=== PATIENT | male | born 1935 | race African-American/Black ===

== ENCOUNTER → 2017-01-18 | Outpatient (CLI) | payer MEDICARE, BC ==
[2017-01-18 09:47] LABS: ALANINE AMINOTRANSFERASE 37 U/L (21-72); ALBUMIN 3.8 g/dL (3.5-5.0); ALKALINE PHOSPHATASE 76 U/L (38-126); ANION GAP 12 (5-19); ASPARTATE AMINO TRANSFERASE 34 U/L (17-59); BILIRUBIN,DIRECT 0.1 mg/dL (0.0-0.4); BILIRUBIN,TOTAL 0.6 mg/dL (0.2-1.3); BLOOD UREA NITROGEN 12 mg/dL (7-20); CALCIUM 8.9 mg/dL (8.4-10.2); CARBON DIOXIDE 29 mmol/L (22-30); CHLORIDE 103 mmol/L (98-107); CHOLESTEROL 107.41 mg/dL (0-200); CREATININE RESULT 0.89 mg/dL (0.52-1.25); Direct HDL 29 mg/dL (>40); GLUCOSE 92 mg/dL (75-110); POTASSIUM 4.3 mmol/L (3.6-5.0); SODIUM 144.4 mmol/L (137-145); TRIGLYCERIDES 76 mg/dL (<150)
[2017-01-18 09:58] LABS: DIRECT LDL 51 mg/dL (<100)
== END ==
LOC: OD 08:12
PROVIDERS: ATTEND Internal Medicine
DX: I10 Essential (primary) hypertension (principal); I25.10 Atherosclerotic heart disease of native coronary artery without angina pectoris; I08.3 Combined rheumatic disorders of mitral, aortic and tricuspid valves; E78.5 Hyperlipidemia, unspecified; R94.31 Abnormal electrocardiogram [ECG] [EKG]; Z79.899 Other long term (current) drug therapy
CPT/HCPCS: 36415; 80053; 80061

== ENCOUNTER → 2017-02-24 | Outpatient (CLI) | payer MEDICARE, BC ==
--- NOTE | 2017-02-24 08:26 | RADIOLOGY REPORT (SQ) ---
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 TECHNIQUE: CT scan of the abdomen and pelvis performed without intravenous or oral contrast. Images reviewed with lung, soft tissue, and bone windows. Reconstructed coronal and sagittal MPR images revi ewed. All images stored on PACS. All CT scanners at this facility use dose modulation, iterative reconstruction, and/or weight based d osing when appropriate to reduce radiation dose to as low as reasonably achievable (ALARA). [facility]: Dose Right [facility]: CareDose [facility]: Dose Right [facility]: Teradose 4D [facility]: [email or web address] RADIATION DOSE: 6.46mGy. LIMITATIONS: None. FINDINGS: LOWER CHEST: Small right pleural effusion is identified. NON-CONTRASTED LIVER, SPLEEN, ADRENALS: Evaluation limited by lack of IV contrast. No identified sign ificant masses. PANCREAS: No masses. No peripancreatic inflammatory changes. GALLBLADDER: There is some increased density in the dependent portion of the gallbladder lumen which could represent tiny gallstones or biliary sludge. No inflammatory changes to suggest cholecystitis. RIGHT KIDNEY AND URETER: No suspicious masses. Assessment limited by lack of IV contrast. No signif icant calcifications. No hydronephrosis or hydroureter. LEFT KIDNEY AND URETER: No suspicious masses. Assessment limited by lack of IV contrast. No signifi cant calcifications. No hydronephrosis or hydroureter. AORTA AND RETROPERITONEUM: No aneurysm. No retroperitoneal masses or adenopathy. BOWEL AND PERITONEAL CAVITY: No obvious masses or inflammatory changes. No free fluid. There are sca ttered diverticula throughout the colon without CT evidence for diverticulitis. The diverticula are most numerous in the sigmoid colon. APPENDIX: Normal. PELVIS, BLADDER, AND ABDOMINAL WALL:No abnormal masses. No free fluid. Bladder normal. BONES: No significant findings. OTHER: No other significant finding. IMPRESSION: Multiple diverticula throughout the colon as noted above without definite CT evidence fo r diverticulitis. There is some increased density in the dependent portion of the gallbladder lumen which could represent tiny gallstones or biliary sludge. Small right pleural effusion is identified. Other findings as noted above TECHNICAL DOCUMENTATION: JOB ID: [id number] Quality ID # [id number]: Final reports with documentation of one or more dose reduction techniques (e.g., Au tomated exposure control, adjustment of the mA and/or kV according to patient size, use of iterative reconstruction technique) 2010 [employer]- All Rights Reserved
== END ==
LOC: RAD 07:23
PROVIDERS: ATTEND Specialist
DX: K57.30 Diverticulosis of large intestine without perforation or abscess without bleeding (principal)
CPT/HCPCS: 74176

== ENCOUNTER → 2017-03-16 | Outpatient (CLI) | payer MEDICARE, BC ==
--- NOTE | 2017-03-16 18:01 | XCELERA REPORT ---
[address] [address] Transthoracic Echocardiogram Report Name: OSITO PINA Age: 81 yrs Gender: Male : 1935 Patient Status: Outpatient Patient Location: Study Date: 03/16/2017 02:47 PM Height: 69 in Weight: 175 lb BSA: 2.0 m2 Procedure: A two-dimensional transthoracic echocardiogram with color flow and Doppler was performed. Study Quality: Technically suboptimal. Poor doppler interogation. Reason For Study: AORTIC STENOSIS History: AORTIC STENOSIS. Ordering Physician: BEATRIZ PANDEY Performed By: Jeffery Puente Interpretation Summary Poor doppler interogation. The left ventricle is normal in size. There is normal left ventricular wall thickness. LV EF is > than 65% Left ventricular systolic function is normal. Doppler measurements suggest impaired left ventricular relaxation, which is associated with grade I/IV or mild diastolic dysfunction The left ventricular wall motion is normal. The left atrial size is normal. There is no evidence of mitral valve prolapse. There is no mitral valve stenosis. There is a trace amount of mitral regurgitation There is mild aortic stenosis There is a peak gradient of 16 mm of Hg. There is no LVOT obstruction. There is a mild amount of aortic regurgitation There is no tricuspid stenosis. There is a trace to mild amount of tricuspid regurgitation Right ventricular systolic pressure is normal. RVSP is 21 mm of Hg , with RA mean of 5. The aortic root is normal size. There is no pericardial effusion. MMode/2D Measurements \T\ Calculations RVDd: 3.3 cm LVIDd: 3.6 cm FS: 50.5 % Ao root diam: 3.5 cm IVSd: 1.1 cm LVIDs: 1.8 cm EDV(Teich): 55.6 ml LVPWd: 1.1 cm ESV(Teich): 9.7 ml Ao root area: 9.5 cm2 EF(Teich): 82.6 % LA dimension: 3.5 cm LVOT diam: 2.4 cm LVOT area: 4.5 cm2 Doppler Measurements \T\ Calculations MV E max alexandria: MV P1/2t max alexandria: Ao V2 max: AI max alexandria: 84.5 cm/sec 81.2 cm/sec 198.9 cm/sec 186.3 cm/sec MV A max alexandria: MV P1/2t: 60.6 msec Ao max PG: AI max P.7 cm/sec MVA(P1/2t): 3.6 cm2 15.8 mmHg 14.0 mmHg MV E/A: 0.73 MV dec slope: TOMI(V,D): 2.3 cm2 AI dec slope: 392.0 cm/sec2 126.0 cm/sec2 AI P1/2t: 433.2 msec LV V1 max PG: PA V2 max: PI end-d alexandria: TR max alexandria: 3.9 mmHg 62.8 cm/sec 91.1 cm/sec 229.3 cm/sec LV V1 max: PA max P.6 mmHg TR max P.3 cm/sec 21.1 mmHg Left Ventricle The left ventricle is normal in size. There is normal left ventricular wall thickness. LV EF is > than 65%. Left ventricular systolic function is normal. Doppler measurements suggest impaired left ventricular relaxation, which is associated with grade I/IV or mild diastolic dysfunction. The left ventricular wall motion is normal. There is no thrombus. Right Ventricle The right ventricle is not well visualized secondary to technical limitations. Atria Right atrium not well visualized secondary to technical limitations. The left atrial size is normal. Mitral Valve There is no evidence of mitral valve prolapse. There is no vegetation seen on the mitral valve. There is no mitral valve stenosis. There is a trace amount of mitral regurgitation. Aortic Valve There is no aortic valvular vegetation. There is mild aortic stenosis. There is a peak gradient of 16 mm of Hg. There is no LVOT obstruction. There is a mild amount of aortic regurgitation. Tricuspid Valve There is no tricuspid stenosis. There is a trace to mild amount of tricuspid regurgitation. Right ventricular systolic pressure is normal. RVSP is 21 mm of Hg , with RA mean of 5. Pulmonic Valve There is no pulmonic valvular stenosis. There is a mild amount of pulmonic regurgitation. Great Vessels The aortic root is normal size. Effusions There is no pericardial effusion. : BEATRIZ PANDEY > Beatriz Pandey
== END ==
LOC: SP 14:35 → MERGE 15:00
PROVIDERS: ATTEND Specialist
DX: I35.0 Nonrheumatic aortic (valve) stenosis (principal)
CPT/HCPCS: 93306

== ENCOUNTER → 2017-04-24 | Outpatient (CLI) | payer MEDICARE, BC ==
--- NOTE | 2017-04-24 13:21 | RADIOLOGY REPORT (SQ) ---
EXAM DESCRIPTION: MRI LUMBAR SPINE WITHOUT COMPLETED DATE/TIME: 04/24/2017 10:28 am REASON FOR STUDY: SPINAL STENOSIS OF LUMBAR REGION WITH RADICULOPATHY (M48.06, M54.16), [facility] M48.06 SPINAL STENOSIS, LUMBAR REGION M54.16 RADICULOPATHY, LUMBAR REGION COMPARISON: 06/17/2016. TECHNIQUE: Sagittal and Axial imaging includes T1, T2, STIR and gradient echo sequences. Coronal T2/ HASTE imaging. LIMITATIONS: None. FINDINGS: VISUALIZED UPPER ABDOMEN: Limited evaluation. No acute or suspicious findings suggested. SEGMENTATION: No transitional anatomy. The lowest well-developed disc space is labeled L5-S1. ALIGNMENT: Anatomic. VERTEBRAE: Intact. BONE MARROW: No marrow replacement. Marked reactive endplate signal change at L4-L5. DISC SIGNAL: Decreased height and signal. POSTERIOR ELEMENTS: Generally intact. No pars defect evident. HARDWARE: None in the spine. CORD AND CONUS: Normal in size and signal intensity. Conus at the appropriate level. SOFT TISSUES: No aortic aneurysm seen. No bulky retroperitoneal adenopathy or mass. No paraspinal mas s or fluid. L1-L2: No significant spinal stenosis or exit foraminal stenosis. L2-L3: Diffuse posterior annular bulge. Moderate facet arthropathy with ligamentum flavum thickening . Moderate spinal stenosis and mild exit foraminal stenosis. L3-L4: Diffuse posterior annular bulge. Marked facet arthropathy with ligamentum flavum thickening. Severe spinal stenosis and moderate exit foraminal stenosis. L4-L5: Diffuse posterior annular bulge. Severe facet arthropathy with ligamentum flavum thickening. Severe spinal stenosis and moderate exit foraminal stenosis. L5-S1: No significant disc bulge. Mild facet arthropathy. No significant spinal stenosis or exit fo raminal stenosis. LOWER THORACIC: Incompletely imaged. No stenosis seen. SACRUM: Visualized upper sacrum intact. OTHER: No other significant findings. IMPRESSION: MULTILEVEL CHRONIC DEGENERATIVE CHANGES WITH SPINAL STENOSIS DESCRIBED ABOVE. NO ACU TE FINDINGS. OVERALL NO SIGNIFICANT CHANGE FROM THE PRIOR STUDY. TECHNICAL DOCUMENTATION: JOB ID: [id number] [employer]- All Rights Reserved
== END ==
LOC: RAD 09:19
PROVIDERS: ATTEND Physician Assistant
DX: M48.06 Spinal stenosis, lumbar region (principal); M54.16 Radiculopathy, lumbar region; M21.371 Foot drop, right foot
CPT/HCPCS: 72148

== ENCOUNTER → 2017-06-12 | Outpatient (CLI) | payer MEDICARE, BC ==
--- NOTE | 2017-06-12 16:17 | RADIOLOGY REPORT (SQ) ---
EXAM DESCRIPTION: VOIDING CYSTOURETHROGRAM; INJECT VCU/CYSTOGRAM COMPLETED DATE/TIME: 06/12/2017 3:40 pm REASON FOR STUDY: RETENTION OF URINE R33.9 RETENTION OF URINE, UNSPECIFIED M51.36 OTHER INTERVERTE BRAL DISC DEGENERATION, LUMBAR REGION COMPARISON: MRI lumbar spine 04/24/2017 CT abdomen pelvis 02/24/2017 FLUOROSCOPY TIME: FLUORO TIME: 58 seconds 12 digital radiographic images saved to PACS. LIMITATIONS: None. PROCEDURE: Procedure explained to the patient who gave consent. Urinary bladder catheterized with d irect visual inspection using sterile technique. Bladder filled with approximately 300 ml of Cystogr afin contrast via gravity drip. FINDINGS: BLADDER: No bladder diverticuli. No gross mucosal masses. Mild bladder trabeculation on the postvoid image. URETHRA: Normal. No obstruction. LEFT URETER: No vesicoureteral reflux. RIGHT URETER: No vesicoureteral reflux. OTHER FINDINGS: No other abnormality noted in soft tissues or bone. POST VOID: Minimal contrast residual. OTHER: No other significant finding. IMPRESSION: Small postvoid contrast residua. Trabecular bladder wall. No urethral stricture COMMENT: Quality ID 145: Final reports for procedures using fluoroscopy that document radiation exp osure indices, or exposure time and number of fluorographic images (if radiation exposure indices are not available) TECHNICAL DOCUMENTATION: JOB ID: [id number] [employer]- All Rights Reserved
== END ==
LOC: RAD 14:44
PROVIDERS: ATTEND Urology
DX: R33.9 Retention of urine, unspecified (principal); M51.36 Other intervertebral disc degeneration, lumbar region
CPT/HCPCS: 51600; 74455

== ENCOUNTER → 2017-07-17 | Outpatient (CLI) | payer MEDICARE, BC ==
--- NOTE | 2017-07-17 17:38 | RADIOLOGY REPORT (SQ) ---
EXAM DESCRIPTION: CT HEAD WITHOUT COMPLETED DATE/TIME: 07/17/2017 5:16 pm REASON FOR STUDY: HEADACHE R51 HEADACHE COMPARISON: None. TECHNIQUE: Axial images acquired through the brain without intravenous contrast. Images reviewed wi th bone, brain and subdural windows. Images stored on PACS. All CT scanners at this facility use dose modulation, iterative reconstruction, and/or weight based d osing when appropriate to reduce radiation dose to as low as reasonably achievable (ALARA). [facility]: Dose Right [facility]: CareDose [facility]: Dose Right [facility]: Teradose 4D [facility]: [employer] RADIATION DOSE: Up-to-date CT equipment and radiation dose reduction techniques were employed. CTDIv ol: 64.6 mGy. DLP: 1034 mGy-cm. mGy. LIMITATIONS: None. FINDINGS: VENTRICLES: Normal size and contour. CEREBRUM: No masses. No hemorrhage. No midline shift. No evidence for acute infarction. Normal gra y/white matter differentiation. No areas of low density in the white matter. CEREBELLUM: No masses. No hemorrhage. No alteration of density. No evidence for acute infarction. EXTRAAXIAL SPACES: No fluid collections. No masses. ORBITS AND GLOBE: No intra- or extraconal masses. Normal contour of globe without masses. CALVARIUM: No fracture. PARANASAL SINUSES: No fluid or mucosal thickening. SOFT TISSUES: There is a right frontal scalp hematoma. OTHER: No other significant finding. IMPRESSION: Right frontal scalp hematoma with no acute intracranial findings. EVIDENCE OF ACUTE STROKE: NO. COMMENT: Quality ID # 436: Final reports with documentation of one or more dose reduction techniques (e.g., Automated exposure control, adjustment of the mA and/or kV according to patient size, use of iterative reconstruction technique) TECHNICAL DOCUMENTATION: JOB ID: [id number] [employer]- All Rights Reserved
== END ==
LOC: RAD 17:01
PROVIDERS: ATTEND Internal Medicine
DX: R51 Headache (principal)
CPT/HCPCS: 70450

== ENCOUNTER → 2019-02-01 | Outpatient (CLI) | payer MEDICARE, BC ==
[2019-02-01 14:25] LABS: HEMATOCRIT 42.8 % (37.9-51.0); HEMOGLOBIN 14.5 g/dL (13.5-17.0); MEAN CORPUSCULAR HGB CONC 33.9 g/dL (32.0-36.0); MEAN CORPUSCULAR VOLUME 97 fl (80-97); PLATELET COUNT 211 10^3/uL (150-450); RED CELL DISTRIBUTION WIDTH 15.4 % (11.5-14.0); WHITE BLOOD COUNT 8.7 10^3/uL (4.0-10.5)
[2019-02-01 14:57] LABS: ALANINE AMINOTRANSFERASE 65 U/L (21-72); ALBUMIN 3.4 g/dL (3.5-5.0); ALKALINE PHOSPHATASE 107 U/L (38-126); ANION GAP 8 (5-19); ASPARTATE AMINO TRANSFERASE 47 U/L (17-59); BILIRUBIN,DIRECT 0.2 mg/dL (0.0-0.4); BILIRUBIN,TOTAL 0.4 mg/dL (0.2-1.3); BLOOD UREA NITROGEN 24 mg/dL (7-20); CALCIUM 8.8 mg/dL (8.4-10.2); CARBON DIOXIDE 27 mmol/L (22-30); CHLORIDE 105 mmol/L (98-107); GLUCOSE 95 mg/dL (75-110); POTASSIUM 3.9 mmol/L (3.6-5.0); SODIUM 139.6 mmol/L (137-145); TOTAL PROTEIN 6.6 g/dL (6.3-8.2)
== END ==
LOC: LAB 14:09
PROVIDERS: ATTEND Internal Medicine Gastroenterology
DX: R63.4 Abnormal weight loss (principal)
CPT/HCPCS: 36415; 80048; 80076; 84443; 85027

== ENCOUNTER → 2019-02-05 | Outpatient (CLI) | payer MEDICARE, BC ==
--- NOTE | 2019-02-05 16:32 | RADIOLOGY REPORT (SQ) ---
EXAM DESCRIPTION: CT CHEST WITH COMPLETED DATE/TIME: 02/05/2019 4:07 pm REASON FOR STUDY: (Z85.118) R63.4 ABNORMAL WEIGHT LOSS Z85.118 PERSONAL HISTORY OF MALIGNANT NEOPL ASM OF BRONCHUS A K57.30 DVRTCLOS OF LG INT W/O PERFORATION OR ABSCESS W/O BLE COMPARISON: 08/23/2013. TECHNIQUE: CT scan of the chest performed using helical scanning technique with dynamic intravenous contrast injection. Images reviewed with lung, soft tissue and bone windows. Reconstructed coronal and sagittal MPR and MIP images reviewed. All images stored on PACS. All CT scanners at this facility use dose modulation, iterative reconstruction, and/or weight based d osing when appropriate to reduce radiation dose to as low as reasonably achievable (ALARA). [facility]: Dose Right [facility]: CareDose [facility]: Dose Right [facility]: Teradose 4D [facility]: [employer] CONTRAST TYPE AND DOSE: 78 mL Omnipaque 350- low osmolar. RENAL FUNCTION: BUN 24 creatinine 0.98. RADIATION DOSE: . LIMITATIONS: None. FINDINGS: LUNGS AND PLEURA: Surgical changes on the right side with marked volume loss. Extensive f ibrotic changes in the remaining right lung with extensive bronchiectasis. Pleural thickening and pl eural effusion on the right. The left lung is relatively clear. There is some peripheral scarring a nd honeycombing particularly in the left lung base. HILAR AND MEDIASTINAL STRUCTURES: No identified masses or abnormal nodes. HEART AND VASCULAR STRUCTURES: No aneurysm or dissection. No central pulmonary emboli. No pericardi al effusion. HARDWARE: Right hilar surgical clips. UPPER ABDOMEN: No significant findings. Limited exam. THYROID AND OTHER SOFT TISSUES: No masses. No adenopathy. BONES: No significant finding. OTHER: No other significant finding. IMPRESSION: SURGICAL CHANGES ON THE RIGHT SIDE WITH MARKED VOLUME LOSS AND EXTENSIVE FIBROTIC CHANGE S IN THE RIGHT LUNG. EXTENSIVE RIGHT-SIDED BRONCHIECTASIS. RIGHT PLEURAL THICKENING AND RIGHT PLEUR AL EFFUSION. CHRONIC SCARRING IN THE LEFT LUNG WITH HONEYCOMBING IN THE LEFT LUNG BASE. NO APPARENT ACUTE FINDINGS. NO RECENT STUDIES FOR COMPARISON. TECHNICAL DOCUMENTATION: JOB ID: [id number] Quality ID # 436: Final reports with documentation of one or more dose reduction techniques (e.g., Au tomated exposure control, adjustment of the mA and/or kV according to patient size, use of iterative reconstruction technique) 2010 [employer]- All Rights Reserved Reading location - IP/workstation name: [email or web address]
--- NOTE | 2019-02-05 16:37 | RADIOLOGY REPORT (SQ) ---
EXAM DESCRIPTION: CT ABD/PELVIS WITH IV ORAL COMPLETED DATE/TIME: 02/05/2019 4:07 pm REASON FOR STUDY: R63.4 ABNORMAL WEIGHT LOSS R63.4 ABNORMAL WEIGHT LOSS Z85.118 PERSONAL HISTORY O F MALIGNANT NEOPLASM OF BRONCHUS A K57.30 DVRTCLOS OF LG INT W/O PERFORATION OR ABSCESS W/O BLE COMPARISON: 02/24/2017. TECHNIQUE: CT scan of the abdomen and pelvis performed using helical scanning technique with dynamic intravenous contrast injection. No oral contrast. Images reviewed with lung, soft tissue, and bone windows. Reconstructed coronal and sagittal MPR images reviewed. Delayed images for evaluation of the urinary system also acquired. All images stored on PACS. All CT scanners at this facility use dose modulation, iterative reconstruction, and/or weight based d osing when appropriate to reduce radiation dose to as low as reasonably achievable (ALARA). [facility]: Dose Right [facility]: CareDose [facility]: Dose Right [facility]: Teradose 4D [facility]: [employer] CONTRAST TYPE AND DOSE: contrast/concentration: Isovue 350.00 mg/ml; Total Contrast Delivered: 78.0 ml; Total Saline Delivered: 67.0 ml RENAL FUNCTION: BUN 24 creatinine 0.98. RADIATION DOSE: CT Rad equipment meets quality standard of care and radiation dose reduction techniq ues were employed. CTDIvol: 5.7 - 8.2 mGy. DLP: 1149 mGy-cm.. LIMITATIONS: None. FINDINGS: LOWER CHEST: No significant findings. No nodules or infiltrates. LIVER: Normal size. Small 6 mm low-attenuation lesion in the left lobe (axial series 3 image 7). No dilated ducts. SPLEEN: Normal size. No focal lesions. PANCREAS: No masses. No significant calcifications. No adjacent inflammation or peripancreatic fluid collections. Pancreatic duct not dilated. GALLBLADDER: No identified stones by CT criteria. No inflammatory changes to suggest cholecystitis. ADRENAL GLANDS: No significant masses or asymmetry. RIGHT KIDNEY AND URETER: No solid masses. No significant calcifications. No hydronephrosis or hyd roureter. LEFT KIDNEY AND URETER: No solid masses. No significant calcifications. No hydronephrosis or hydr oureter. AORTA AND VESSELS: No aneurysm. No dissection. Renal arteries, SMA, celiac without stenosis. RETROPERITONEUM: No retroperitoneal adenopathy, hemorrhage or masses. BOWEL AND PERITONEAL CAVITY: Colonic diverticuli, particularly in the descending and sigmoid colon. No masses or inflammatory changes. No free fluid or peritoneal masses. APPENDIX: Normal. PELVIS: No mass. No free fluid. Normal bladder. ABDOMINAL WALL: No masses. No hernias. BONES: No significant or acute findings. OTHER: No other significant finding. IMPRESSION: 1. COLONIC DIVERTICULOSIS. NO CT FINDINGS OF ACUTE DIVERTICULITIS. 2. SMALL SUBCENTIMETER LOW-ATTENUATION LESION IN THE LEFT LOBE OF THE LIVER. TOO SMALL TO EVALUATE, MAY BE A SMALL CYST. 3. NO OTHER SIGNIFICANT OR ACUTE FINDING IN THE ABDOMEN OR PELVIS ON CT SCAN WITH IV CONTRAST. TECHNICAL DOCUMENTATION: JOB ID: [id number] Quality ID # 436: Final reports with documentation of one or more dose reduction techniques (e.g., Au tomated exposure control, adjustment of the mA and/or kV according to patient size, use of iterative reconstruction technique) 2010 [employer]- All Rights Reserved Reading location - IP/workstation name: [email or web address]
== END ==
LOC: RAD 15:03
PROVIDERS: ATTEND Internal Medicine Gastroenterology
DX: K57.30 Diverticulosis of large intestine without perforation or abscess without bleeding (principal); C78.00 Secondary malignant neoplasm of unspecified lung
CPT/HCPCS: 71260; 74177

== ENCOUNTER → 2019-03-26 | Outpatient (CLI) | payer MEDICARE, BC ==
[2019-03-26 10:50] LABS: CHOLESTEROL 135.04 mg/dL (0-200); TRIGLYCERIDES 91 mg/dL (<150)
[2019-03-26 11:01] LABS: DIRECT LDL 81 mg/dL (<100)
== END ==
LOC: OD 09:01
PROVIDERS: ATTEND Internal Medicine
DX: I25.10 Atherosclerotic heart disease of native coronary artery without angina pectoris (principal); I35.0 Nonrheumatic aortic (valve) stenosis; I34.0 Nonrheumatic mitral (valve) insufficiency; I36.1 Nonrheumatic tricuspid (valve) insufficiency; R94.31 Abnormal electrocardiogram [ECG] [EKG]; I10 Essential (primary) hypertension; R06.09 Other forms of dyspnea; E78.49 Other hyperlipidemia; Z79.899 Other long term (current) drug therapy
CPT/HCPCS: 36415; 80061

== ENCOUNTER → 2019-08-20 | Outpatient (CLI) | payer MEDICARE, BC ==
--- NOTE | 2019-08-20 12:01 | RADIOLOGY REPORT (SQ) ---
EXAM DESCRIPTION: CT CHEST WITH COMPLETED DATE/TIME: 08/20/2019 11:30 am REASON FOR STUDY: HEMOPTYSIS R04.2 HEMOPTYSIS COMPARISON: None. TECHNIQUE: CT scan of the chest performed using helical scanning technique with dynamic intravenous contrast injection. Images reviewed with lung, soft tissue and bone windows. Reconstructed coronal and sagittal MPR and MIP images reviewed. All images stored on PACS. All CT scanners at this facility use dose modulation, iterative reconstruction, and/or weight based d osing when appropriate to reduce radiation dose to as low as reasonably achievable (ALARA). [facility]: Dose Right [facility]: CareDose [facility]: Dose Right [facility]: Teradose 4D [facility]: [employer] CONTRAST TYPE AND DOSE: contrast/concentration: Isovue 350.00 mg/ml; Total Contrast Delivered: 80.0 ml; Total Saline Delivered: 55.0 ml RENAL FUNCTION: Creatinine 0.9 RADIATION DOSE: CT Rad equipment meets quality standard of care and radiation dose reduction techniq ues were employed. CTDIvol: 13.5 mGy. DLP: 532 mGy-cm. . LIMITATIONS: None. FINDINGS: LUNGS AND PLEURA: Grossly stable subpleural fibrosis. Persistent loculated pleural effusi on on the right. Significant volume loss on the right stable from prior exam. Subpleural changes on the left are most marked in the lung base. No suspicious pulmonary nodules. HILAR AND MEDIASTINAL STRUCTURES: Persistent right hilar soft tissue mass which encroaches on and inv ades the right main pulmonary artery. There has been little if any change from prior exam. HEART AND VASCULAR STRUCTURES: As above. HARDWARE: None in the chest. UPPER ABDOMEN: No significant findings. Limited exam. THYROID AND OTHER SOFT TISSUES: No masses. No adenopathy. BONES: No significant finding. OTHER: No other significant finding. IMPRESSION: Grossly stable CT of the chest as described. There is a soft tissue mass which in appro aches on invades the right main pulmonary artery. No significant change from previous examination. COMMENT: This report was called to NIR RODRÍGUEZ MD at11:54 on 08/20/2019. TECHNICAL DOCUMENTATION: JOB ID: [id number] Quality ID # 436: Final reports with documentation of one or more dose reduction techniques (e.g., Au tomated exposure control, adjustment of the mA and/or kV according to patient size, use of iterative reconstruction technique) 2010 [employer]- All Rights Reserved Reading location - IP/workstation name: [email or web address]
== END ==
LOC: RAD 11:04
PROVIDERS: ATTEND Internal Medicine
DX: R04.2 Hemoptysis (principal)
CPT/HCPCS: 71260; 82565

== ENCOUNTER → 2019-09-05 | Outpatient (CLI) | payer MEDICARE, BC ==
--- NOTE | 2019-09-05 18:41 | RADIOLOGY REPORT (SQ) ---
EXAM DESCRIPTION: CT ABD/PELVIS WITH IV ORAL COMPLETED DATE/TIME: 09/05/2019 6:22 pm REASON FOR STUDY: LEFT UPPER QUADRANT PAIN R10.12 LEFT UPPER QUADRANT PAIN COMPARISON: CT of the chest with contrast from 08/20/[address] of the abdomen and pelvis with contr ast from 02/05/2019. TECHNIQUE: CT scan of the abdomen and pelvis performed using helical scanning technique with dynamic intravenous contrast injection. No oral contrast. Images reviewed with lung, soft tissue, and bone windows. Reconstructed coronal and sagittal MPR images reviewed. Delayed images for evaluation of the urinary system also acquired. All images stored on PACS. All CT scanners at this facility use dose modulation, iterative reconstruction, and/or weight based d osing when appropriate to reduce radiation dose to as low as reasonably achievable (ALARA). [facility]: Dose Right [facility]: CareDose [facility]: Dose Right [facility]: Teradose 4D [facility]: [employer] CONTRAST TYPE AND DOSE: Contrast/concentration: Isovue 350.00 mg/ml; Total Contrast Delivered: 100.0 ml; Total Saline Delivered: 67.7 ml RENAL FUNCTION: Creatinine 0.9 milligrams/deciliter RADIATION DOSE: CT Rad equipment meets quality standard of care and radiation dose reduction techniq ues were employed. CTDIvol: 8.1 - 11.6 mGy. DLP: 994 mGy-cm.. LIMITATIONS: None. FINDINGS: LOWER CHEST: Loculated right pleural effusion associated with volume loss. There is ather osclerotic calcification of the mitral annulus. The left ventricle is enlarged. The reticular opaci ties in the left lower lobes are unchanged. LIVER: The morphology of the liver is non cirrhotic. The relative hypoattenuation of hepatic parench yma compared to the splenic parenchyma on the portal venous phase is suggestive of hepatic steatosis. SPLEEN: No splenomegaly or splenic mass. PANCREAS: No abnormality of the pancreas. GALLBLADDER: Cholelithiasis with without other associated ancillary findings to indicate an acute cho lecystitis. ADRENAL GLANDS: No mass or asymmetry. RIGHT KIDNEY AND URETER: No solid mass, hydronephrosis, nephrolithiasis, hydroureter or ureterolithia sis. LEFT KIDNEY AND URETER: No solid mass, hydronephrosis, nephrolithiasis, hydroureter or ureterolithias is. AORTA AND VESSELS: No aneurysm or dissection of the abdominal aorta. RETROPERITONEUM: No retroperitoneal adenopathy, hemorrhage or mass. BOWEL AND PERITONEAL CAVITY: Colonic diverticulosis without other associated ancillary findings to in dicate an acute diverticulitis. There is no bowel obstruction, bowel wall thickening, or pericolonic / perienteric inflammation. There is no mesenteric adenopathy, free intraperitoneal fluid or mesente khurram/ omental inflammation. APPENDIX: Normal. PELVIS: The prostate gland measures 3.9 cm in transverse diameter and 3.3 cm in AP diameter. Urinary bladder is distended and unchanged in appearance from 02/05/2019. ABDOMINAL WALL: The inguinal canals are patulous. BONES: No acute findings. OTHER: No other finding. IMPRESSION: 1. No acute intracranial abnormality. 2. Colonic diverticulosis without diverticulitis. 3. Cholelithiasis without acute cholecystitis. TECHNICAL DOCUMENTATION: JOB ID: [id number] Quality ID # 436: Final reports with documentation of one or more dose reduction techniques (e.g., Au tomated exposure control, adjustment of the mA and/or kV according to patient size, use of iterative reconstruction technique) 2010 [employer]- All Rights Reserved Reading location - IP/workstation name: [email or web address]
== END ==
LOC: RAD 15:33
PROVIDERS: ATTEND Internal Medicine
DX: R10.12 Left upper quadrant pain (principal)
CPT/HCPCS: 74177